=== PATIENT | male | born 1995 | race Two or more races ===

== ENCOUNTER 2018-06-03 13:42 | Emergency (ER) | payer SELFPAY ==
[2018-06-03] MEDS ORDERED: HYDROCODONE/APAP 5/325 TAB PO ONE (15:27)
--- NOTE | 2018-06-03 15:35 | EDPHY ---
H & P Time Seen by Provider: 06/03/18 14:58 HPI/ROS: HPI Lower back pain. 22-year-old male on foot. Patient reports that he was helping a friend move heavy boxes yesterday evening. He reports that he woke up at 4:00 a.m. With mid lower back pain which she states radiates into his buttocks and up his mid back. Pain is worse with any movement of his torso. Patient states that he is allergic to aspirin, ibuprofen and other NSAIDs. He states that he gets anaphylaxis from this. He states that he has had anaphylaxis from aspirin and thinks he has had anaphylaxis from other NSAID medications. His nurse suggested lidocaine patches but the patient told his nurse that he tried lidocaine lotion and this did not work. He denies any loss of sensation or weakness in his lower extremities. No bowel or bladder incontinence. No history of malignancy. He does not have a fever. There is no history of significant trauma. He denies abdominal pain. ROS: Constitutional: No fever, no chills. No weakness. Respiratory: No cough. No shortness of breath. Cardiac: No chest pain, no palpitations. Gastrointestinal: No abdominal pain, no vomiting, no diarrhea. Genitourinary: No hematuria. No dysuria or increased frequency with urination. Musculoskeletal: As above. No neck pain. No myalgias or arthralgias. Skin: No rashes. Neurological: No headache. No focal weakness or altered sensation. Past medical history: He denies any significant past medical history. Social history: Nonsmoker. No alcohol. Here by himself. Physical Exam: General Appearance: Alert, no distress. This patient is responding to questions appropriately and in full sentences. This patient appears well- hydrated and well-nourished. Eyes: Pupils equal and round no pallor or injection. No lid edema, erythema or injection. Back exam: He has paraspinal tenderness involving the lumbar spine bilaterally L3 through L5. He does not have significant midline tenderness. He has a negative same side and cross-side straight leg raise test. He is neurologically intact in all myotomes in dermatomes of the bilateral lower extremities. Respiratory: There are no retractions, lungs are clear to auscultation with good air movement bilaterally. Cardiovascular: Regular rate and rhythm. No murmur. Gastrointestinal: Abdomen is soft and nontender, no masses, bowel sounds normal. No focal tenderness at McBurney's point. No Pappas sign. Neurological: Motor sensory function is grossly intact. Cranial nerves are normal. Skin: Warm and dry, no rashes. Musculoskeletal: Neck is supple and nontender. Extremities are symmetrical. All joints range without pain or impingement. Psychiatric: No agitation. No depression. Database: EKG: Imaging: LS spine x-ray series: Constipation noted. Negative for fracture, subluxation , dislocation. Interpreted by me. Procedures: Emergency department course: Triage vital signs reviewed. He was initially tachycardic at 1:30 a.m. In triage. Repeat vital signs heart rate of 101. He is otherwise afebrile and vital signs are normal. Given his of age history of allergy to all NSAIDs as well as his description are trying a lidocaine lotion prior to arrival, we are concerned about narcotic seeking behavior. I explained to him I would give him a 1 time dose of Vicodin in the emergency department for his pain and a dose of Flexeril. Urinalysis will be obtained to evaluate for hematuria. Imaging will be considered after that. 4:15 p.m., patient re-evaluated. Discussed results of x-rays as well as urinalysis. Patient's presentation is consistent with a lumbar sacral strain. Plan will be to prescribe him Flexeril as well as lidocaine patches. He feels comfortable being discharged at this time. Repeat neurologic Assessment is nonfocal. He feels better after above pain medication. He is up and ambulatory on his own without difficulty. Follow-up and return to emergency department precautions reviewed with him. All of his questions were answered. He was discharged from the emergency department in good condition. Differential Diagnosis: The differential diagnosis on this patient includes but is not limited to lumbar strain, bulging lumbar intervertebral disc. Epidural compression syndrome, epidural abscess, abdominal aortic aneurysm, acute traumatic injury, radiculopathy unlikely. This represents a partial list of diagnoses considered. These considerations are based on history, physical exam, past history, reassessment and diagnostic testing. Smoking Status: Former smoker Constitutional: Initial Vital Signs Temperature (C) 37.5 C 06/03/18 14:01 Heart Rate 130 H 06/03/18 14:01 Respiratory Rate 16 06/03/18 14:01 Blood Pressure 120/82 H 06/03/18 14:01 O2 Sat (%) 97 06/03/18 14:01 O2 Delivery Mode Room Air Allergies/Adverse Reactions: aspirin Allergy (Verified 02/06/16 10:51) ibuprofen Allergy (Verified 06/03/18 14:01) Home Medications: Medication Instructions Recorded Cyclobenzaprine [Flexeril 10 MG 10 mg PO TID #9 tab 06/03/18 (*)] Lidocaine [Lidocaine Pain Relief] 1 each TP DAILY #10 adh..patch 06/03/18 Medical Decision Making - Diagnostics Imaging Results: Imaging Impressions Lumbar Spine X-Ray 06/03/18 15:59 Impression: 1. Normal lumbar spine, two views. 2. Consider additional MR imaging, if clinically indicated. - Data Points Laboratory Results: 06/03/18 15:30 Urine Color YELLOW Urine Appearance CLEAR Urine pH 7.0 (5.0-7.5) Ur Specific [place] 1.017 (1.002-1.030) Urine Protein NEGATIVE (NEGATIVE) Urine Ketones NEGATIVE (NEGATIVE) Urine Blood NEGATIVE (NEGATIVE) Urine Nitrate NEGATIVE (NEGATIVE) Urine Bilirubin NEGATIVE (NEGATIVE) Urine Urobilinogen NEGATIVE EU EU (0.2-1.0) Ur Leukocyte Esterase NEGATIVE (NEGATIVE) Urine Glucose NEGATIVE (NEGATIVE) Medications Given: Discontinued Medications Hydrocodone Bitart/Acetaminophen ([place] 5/325) 2 tab PO EDNOW ONE Stop: 06/03/18 15:28 Last Admin: 06/03/18 15:44 Dose: 2 tab Cyclobenzaprine HCl (Flexeril) 10 mg PO EDNOW ONE Stop: 06/03/18 15:29 Last Admin: 06/03/18 15:43 Dose: 10 mg Departure - Departure Disposition: Home, Routine, Self-Care Clinical Impression: Lower back pain Condition: Good Instructions: Back Pain (ED) Additional Instructions: Read and follow provided instructions. Follow-up with your primary care physician on Monday or Monday of this coming week for re-evaluation as discussed. You can take Tylenol as directed over the next 3-4 days. Take muscle relaxer as prescribed. Use lidocaine patches as described. Return to the emergency department for worsening pain, loss of sensation or weakness in your lower extremities, bowel or bladder incontinence, fever, pain persisting greater than 3 days or other serious concerns. Referrals: NONE *PRIMARY CARE P,. [Primary Care Provider] - As per Instructions [facility],. [Clinic] - As per Instructions Prescriptions: Cyclobenzaprine [Flexeril 10 MG (*)] 10 mg PO TID #9 tab Lidocaine [Lidocaine Pain Relief] 1 each TP DAILY #10 adh..patch
[2018-06-03] MEDS: CYCLOBENZAPRINE 10 MG TAB PO ONE (15:43)
[2018-06-03 16:29] VITALS: BP 122/74
== END 2018-06-03 16:30 | disposition home or self-care (01) ==
DX: M54.5 Low back pain (principal)